=== PATIENT | female | born 1995 | race Two or more races ===

== ENCOUNTER 2018-04-10 02:10 | Outpatient (CLI) | payer MEDICAID | END 2018-04-10 02:11 | disposition short-term general hospital (02) | LOC: EMS 02:10 | PROVIDERS: ATTEND Surgery | DX: O03.6 Delayed or excessive hemorrhage following complete or unspecified spontaneous abortion (principal); R55 Syncope and collapse | CPT/HCPCS: A0425; A0427; A0999 ==

== ENCOUNTER 2018-05-26 03:26 | Outpatient (CLI) | payer MEDICAID | END 2018-05-26 03:27 | disposition critical access hospital (66) | LOC: EMS 03:26 | PROVIDERS: ATTEND Surgery | DX: R50.9 Fever, unspecified (principal) | CPT/HCPCS: A0425; A0429; A0999 ==

== ENCOUNTER 2018-05-26 03:41 | Emergency (ER) | payer MEDICAID ==
[2018-05-26 04:03] LABS: BILIRUBIN,URINE NEGATIVE (NEGATIVE); GLUCOSE, URINE (UA) NEGATIVE (NEGATIVE); KETONES,URINE (UA) NEGATIVE (NEGATIVE); LEUKOCYTE ESTERASE, URINE NEGATIVE (NEGATIVE); NITRITE,URINE NEGATIVE (NEGATIVE); OCCULT BLOOD,URINE SMALL (NEGATIVE); PROTEIN,URINE NEGATIVE (NEGATIVE); UROBILINOGEN,URINE 0.2 (NORMAL) E.U./dL (NORMAL)
[2018-05-26 04:05] LABS: CLARITY,URINE CLEAR (CLEAR); HCG UR QUAL NEGATIVE
--- NOTE | 2018-05-26 04:05 | ED Physician Documentation ---
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 medic measured temperature PO of 101.2. Patient was unaware of fevers. has not had antipyretic MILIEU MANAGER Review of Systems Constitutional: reports: Fever, Chills, Myalgias. denies: Sweats Ears: denies: Ear pain Nose: reports: Reviewed and negative Throat: reports: Reviewed and negative Cardiac: reports: Reviewed and negative Respiratory: reports: Reviewed and negative GI: reports: Abdominal Pain. denies: Nausea, Vomiting, Constipation, Diarrhea : denies: Dysuria, Frequency Skin: denies: Rash Musculoskeletal: reports: Reviewed and negative Neurologic: reports: Headache. 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(s) (approximately 2 months ago: spontaneous that was subsequently hastened with PO medication (does not know what was prescribed)) - Past Surgical History Past Surgical History: No - Present Medications Home Medications: Ambulatory Orders Medication Instructions Recorded Confirmed Cephalexin [Keflex] 500 mg PO Q6H #28 capsule 05/10/15 Phenazopyridine [Pyridium] 100 mg PO Q8H PRN #9 tablet 05/10/15 Saccharomyces Boulardii [Florastor] 500 mg PO BIDWM #40 capsule 05/10/15 - Allergies Allergies/Adverse Reactions: Allergies Allergy/AdvReac Type Severity Reaction Status Date / Time No Known Drug Allergies Allergy Verified 05/10/15 12:39 - Social History Does the pt smoke?: No Smoking Status: Never smoker Does the pt drink ETOH?: No Does the pt have substance abuse?: No - Immunizations Immunizations are current?: Yes - POLST Patient has POLST: No PD ED PE NORMAL - Vitals Vital signs reviewed: Yes - General General: Alert and oriented X 3, No acute distress, Well developed/nourished - HEENT HEENT: Moist mucous membranes, Pharynx benign - Cardiac Cardiac: RRR, No murmur - Respiratory Respiratory: No respiratory distress, Clear bilaterally - Abdomen Abdomen: Soft, Non tender, Non distended - Back Back: No CVA TTP - Derm Derm: Normal color, Warm and dry, No rash Results - Vitals Vitals: Vital Signs - 24 hr 05/26/18 05/26/18 05/26/18 03:43 05:47 08:04 Temperature 37.7 C H 37.0 C 36.9 C Heart Rate 115 H 91 88 Respiratory 18 15 16 Rate Blood Pressure 105/78 96/65 103/62 O2 Saturation 96 100 100 Oxygen O2 Source Room air - Labs Labs: Laboratory Tests 05/26/18 05/26/18 05/26/18 03:45 03:45 03:48 WBC 8.9 RBC 3.88 L Hgb 9.1 L Hct 27.4 L MCV 70.7 L MCH 23.4 L MCHC 33.2 RDW 21.5 H Plt Count 329 MPV 9.1 Neut # (Auto) 7.7 H Lymph # (Auto) 0.6 L [place] # (Auto) 0.5 Eos # (Auto) 0.0 Baso # (Auto) 0.0 Absolute Nucleated RBC 0.00 Nucleated RBC % 0.0 Manual Slide Review Indicated Platelet Estimate NORMAL (130-450,000) RBC Morph Micro Appear 1+ OVALOCYTES Sodium 132 L Potassium 3.6 Chloride 107 Carbon Dioxide 21 Anion Gap 4.0 L BUN 11 Creatinine 0.6 Estimated GFR (MDRD) 124 Glucose 108 H Calcium 9.3 Total Bilirubin 0.3 AST 19 ALT 11 Alkaline Phosphatase 89 Total Protein 7.7 Albumin 4.2 Globulin 3.5 Albumin/Globulin Ratio 1.2 Lipase 41 Urine Color YELLOW Urine Clarity CLEAR Urine pH 6.0 Ur Specific [place] 1.025 Urine Protein NEGATIVE Urine Glucose (UA) NEGATIVE Urine Ketones NEGATIVE Urine Occult Blood SMALL H Urine Nitrite NEGATIVE Urine Bilirubin NEGATIVE Urine Urobilinogen 0.2 (NORMAL) Ur Leukocyte Esterase NEGATIVE Urine RBC 0-5 Urine WBC 0-3 Ur Squamous Epith Cells FEW Squamous Urine Bacteria Rare Ur Microscopic Review INDICATED Urine Culture Comments NOT INDICATED Urine HCG, Qual NEGATIVE PD MEDICAL DECISION MAKING - ED course Complexity details: reviewed results, re-evaluated patient, considered differential, d/w patient ED course: afebrile in ED (Tmax 37.7). 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 given tylenol in ED. exam is unremarkable. there are no elements/findings on HPI/ROS/PE to suggest a source of fever, including pulmonary, urinary, abdominal, , URI/HEENT sources. labs tests and UA are reassuring except significant anemia noted. This is likely a coincident finding, with low indices s/o chronic anemia. Of note, before tests resulted, patient told me she has a daily, intense craving for ice chips s/o pica, which would further suggest iron deficiency anemia given the test results. I discussed this with her and instructed her to f/u with PMD (and if she dies not have one, to contact her insurance provider to ask for options for PMD). I explained that she will need further testing, such as (but not necessarily limited to) iron studies. I explained that her anemia is not severe enough to warrant further testing or treatment in the ED, but that she would likely benefit considerably with treatment should her anemia be treatable (such as iron deficiency). - Sepsis Event Vital Signs: Vital Signs - 24 hr 05/26/18 05/26/18 05/26/18 03:43 05:47 08:04 Temperature 37.7 C H 37.0 C 36.9 C Heart Rate 115 H 91 88 Respiratory 18 15 16 Rate Blood Pressure 105/78 96/65 103/62 O2 Saturation 96 100 100 Oxygen O2 Source Room air Departure - Departure Disposition: 01 Home, Self Care Clinical Impression: Anemia Qualifiers: Anemia type: unspecified type Qualified Code(s): D64.9 - Anemia, unspecified Condition: Good Instructions: ED Anemia Type Not Specified, ED Fever Unconf Cause Follow-Up: [facility] [Provider Group] [facility] [Provider Group] Forms: Activity restrictions Discharge Date/Time: 05/26/18 08:05
[2018-05-26 04:12] LABS: BACTERIA,URINE Rare /HPF (None Seen); RBC,URINE 0-5 /HPF (0-5); SQUAMOUS EPITHELIAL CELL,UR FEW Squamous (<= Few)
[2018-05-26] MEDS ORDERED: ACETAMINOPHEN 325 MG TABLET PO STA (04:12)
[2018-05-26 04:23] LABS: BASOPHILS % (AUTO) 0.5 %; EOSINOPHILS % (AUTO) 0.2 %; HGB - HEMOGLOBIN 9.1 g/dL (12.0-16.0); LYMPHOCYTES # (AUTO) 0.6 10^3/uL (1.5-3.5); LYMPHOCYTES % (AUTO) 6.9 %; MEAN CORPUSCULAR HEMOGLOBIN 23.4 pg (27.0-31.0); MEAN CORPUSCULAR HGB CONC 33.2 g/dL (32.0-36.0); MEAN CORPUSCULAR VOLUME 70.7 fL (81.0-99.0); MEAN PLATELET VOLUME 9.1 fL (7.9-10.8); MONOCYTES # (AUTO) 0.5 10^3/uL (0.0-1.0); NEUTROPHILS # (AUTO) 7.7 10^3/uL (1.5-6.6); NEUTROPHILS % (AUTO) 86.4 %; PLT - PLATELET COUNT 329 10^3/uL (130-450); RED BLOOD COUNT 3.88 10^6/uL (4.20-5.40); RED CELL DISTRIBUTION WIDTH 21.5 % (12.0-15.0); WHITE BLOOD COUNT 8.9 x10^3/uL (4.8-10.8)
[2018-05-26 04:29] LABS: ALBUMIN 4.2 g/dL (3.2-5.5); ALBUMIN/GLOBULIN RATIO 1.2 (1.0-2.2); BILIRUBIN,TOTAL 0.3 mg/dL (0.2-1.0); CALCIUM 9.3 mg/dL (8.5-10.3); CREATININE 0.6 mg/dL (0.4-1.0); TOTAL PROTEIN 7.7 g/dL (6.7-8.2)
[2018-05-26 04:45] LABS: PLATELET ESTIMATE, MANUAL NORMAL (130-450,000) (NORMAL)
[2018-05-26 08:05] VITALS: BP 103/62
== END 2018-05-26 08:05 | disposition home or self-care (01) ==
LOC: EDUNIT# → ED 03:41
DX: D64.9 Anemia, unspecified (principal)
CPT/HCPCS: 36415; 80053; 81001; 81025; 83690; 85025; 99282; 99283; A9270; 81003; 87086

== ENCOUNTER 2020-01-19 16:27 | Outpatient (CLI) | payer MEDICAID | END 2020-01-19 16:28 | disposition critical access hospital (66) | LOC: EMS 16:27 | PROVIDERS: ATTEND Surgery | DX: R10.9 Unspecified abdominal pain (principal); R11.0 Nausea | CPT/HCPCS: A0425; A0427; A0999 ==

== ENCOUNTER 2020-01-19 16:47 | Emergency (ER) | payer MEDICAID ==
[2020-01-19] MEDS ORDERED: KETOROLAC 30 MG/ML VIAL IVP STA (16:57)
--- NOTE | 2020-01-19 16:57 | ED Physician Documentation ---
History of Present Illness - Stated complaint Stated Complaint: ABD PX - Chief complaint Chief Complaint: Abd Pain - History obtained from History obtained from: Patient (Pt presents with suprapubic pressure for a couple of days but worse today. Pain just over the bladder, does not radiate. No flank pain. Pain not relieved with tylenol, no other meds attempted. No dysuria or hematuria, no vaginal discharge, no dyspareunia. No other abdominal pain, nausea, vomiting, fever/chills, or flu-like symptoms. Tolerating po. LMP 6 weeks ago, normal for her to have irregular menses. Had a miscarriage a couple of months ago.) Review of Systems Constitutional: reports: Reviewed and negative Cardiac: reports: Reviewed and negative Respiratory: reports: Reviewed and negative GI: reports: Abdominal Pain. denies: Abdominal Swelling, Nausea, Vomiting, Constipation, Diarrhea, Hematemesis, Bloody / black stool : reports: Hematuria, Irregular menses. denies: Dysuria, Frequency, Hesitancy, Unable to Void, Incontinent, Vaginal bleeding, Missed period Skin: reports: Reviewed and negative Musculoskeletal: reports: Reviewed and negative PD PAST MEDICAL HISTORY - Past Medical History Past Medical History: Yes STONEHAND: Ovarian cysts, Miscarriage(s) (approximately 2 months ago: spontaneous that was subsequently hastened with PO medication (does not know what w as prescribed)) - Past Surgical History Past Surgical History: No /STONEHAND: Dilation and currettage - Present Medications Home Medications: Ambulatory Orders Medication Instructions Recorded Confirmed Cephalexin [Keflex] 500 mg PO Q6H #28 capsule 05/10/15 Phenazopyridine [Pyridium] 100 mg PO Q8H PRN #9 tablet 05/10/15 Saccharomyces Boulardii [Florastor] 500 mg PO BIDWM #40 capsule 05/10/15 Ibuprofen [Motrin] 800 mg PO Q8H PRN #30 tablet 01/19/20 - Allergies Allergies/Adverse Reactions: Allergies Allergy/AdvReac Type Severity Reaction Status Date / Time No Known Drug Allergies Allergy Verified 01/19/20 17:01 - Social History Does the pt smoke?: No Smoking Status: Never smoker Does the pt drink ETOH?: No Does the pt have substance abuse?: No - Immunizations Immunizations are current?: Yes - POLST Patient has POLST: No PD ED PE NORMAL - Vitals Vital signs reviewed: Yes - General General: Alert and oriented X 3, No acute distress, Well developed/nourished - HEENT HEENT: Atraumatic, Moist mucous membranes, Pharynx benign - Neck Neck: Supple, no meningeal sign, No JVD - Cardiac Cardiac: RRR, No murmur, No gallop, No rub - Respiratory Respiratory: No respiratory distress, Clear bilaterally - Abdomen Abdomen: Normal bowel sounds, Soft, Non tender, Non distended, Other (mild suprapubic ttp) - Female Female : Pt declined - Back Back: No CVA TTP - Derm Derm: Normal color, Warm and dry, No rash - Extremities Extremities: No deformity, No tenderness to palpate, Normal ROM s pain, No edema, No calf tenderness / cord - Neuro Neuro: Alert and oriented X 3 Eye Opening: Spontaneous Motor: Obeys Commands Verbal: Oriented GCS Score: 15 - Psych Psych: Normal mood, Normal affect Results - Vitals Vitals: Vital Signs - 24 hr 01/19/20 01/19/20 01/19/20 16:54 17:07 18:36 Temperature 36.7 C Heart Rate 70 56 L 58 L Respiratory 16 14 16 Rate Blood Pressure 110/51 L 99/70 93/60 O2 Saturation 99 98 100 Oxygen O2 Source Room air - Labs Labs: Laboratory Tests 01/19/20 01/19/20 17:40 17:40 Urine Color YELLOW Urine Clarity CLEAR Urine pH 7.0 Ur Specific [place] 1.010 1.010 Urine Protein NEGATIVE Urine Glucose (UA) NEGATIVE Urine Ketones NEGATIVE Urine Occult Blood SMALL H Urine Nitrite NEGATIVE Urine Bilirubin NEGATIVE Urine Urobilinogen 0.2 (NORMAL) Ur Leukocyte Esterase NEGATIVE Urine RBC 0-5 Urine WBC 0-3 Ur Squamous Epith Cells MOD Squamous H Urine Bacteria None Seen Ur Microscopic Review INDICATED Urine Culture Comments NOT INDICATED Urine HCG, Qual NEGATIVE PD MEDICAL DECISION MAKING - ED course Complexity details: reviewed results, re-evaluated patient, considered differential, d/w patient ED course: Patient presented with suprapubic pressure and pain which improved with IV NS and toradol. Her UA is negative for infection but notable for a small amount of blood. She is not . She does not have symptoms of PID and has no concern for STI. I have low suspicion for TOA. Differentials including urolithiasis, STI, cystitis, bladder spasms. I discussed options w/ pt including a pelvic exam and possible imaging vs watch and wait. Pt elected to wait as she felt improvement with toradol. 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 She was advised to return to the ER at anytime if she developed fever/chills, flu like sx, or n/v. Departure - Departure Disposition: Home, Self Care Clinical Impression: Bladder pain Condition: Good Instructions: ED Pelvic Pain [facility] Prescriptions: Ibuprofen [Motrin] 800 mg PO Q8H PRN #30 tablet PRN Reason: PAIN &/OR FEVER Comments: You presented with pain and pressure over your bladder. It improved somewhat with anti-inflammatory medication in the ER. Your test was negative and you do not have a urinary tract infection but do have small amount of blood in the urine. Potential diagnoses are cystitis w/o infection, fibroids, ovarian cysts, sexually transmitted infection, or menstrual pains. We discussed continuing nsaids and watch/wait vs pelvic exam and additional lab testing. For now, you will continue nsaids and oral fluids. If there is no improvement in your pain or the pain worsens or you develop fever/chills, flu-like sx, n/v, advised to return to the ER. Discharge Date/Time: 01/19/20 18:40
[2020-01-19 17:49] LABS: BILIRUBIN,URINE NEGATIVE (NEGATIVE); CLARITY,URINE CLEAR (CLEAR); GLUCOSE, URINE (UA) NEGATIVE (NEGATIVE); KETONES,URINE (UA) NEGATIVE (NEGATIVE); LEUKOCYTE ESTERASE, URINE NEGATIVE (NEGATIVE); NITRITE,URINE NEGATIVE (NEGATIVE); OCCULT BLOOD,URINE SMALL (NEGATIVE); PROTEIN,URINE NEGATIVE (NEGATIVE); UROBILINOGEN,URINE 0.2 (NORMAL) E.U./dL (NORMAL)
[2020-01-19 17:50] LABS: HCG UR QUAL NEGATIVE
[2020-01-19 17:57] LABS: BACTERIA,URINE None Seen /HPF (None Seen); RBC,URINE 0-5 /HPF (0-5); SQUAMOUS EPITHELIAL CELL,UR MOD Squamous (<= Few)
[2020-01-19 18:38] VITALS: BP 93/60
== END 2020-01-19 18:40 | disposition home or self-care (01) ==
LOC: EDUNIT# → ED 16:47
DX: R39.89 Other symptoms and signs involving the genitourinary system (principal); R31.9 Hematuria, unspecified
CPT/HCPCS: 81001; 81003; 81025; 87086; 96374; 99284